=== PATIENT | male | born 1975 | race Caucasian/White ===

== ENCOUNTER 2024-01-15 16:39 | Emergency (ER) | payer BC, SELFPAY ==
[2024-01-15 16:50] VITALS: BP 123/81; PULSE 65; RESP 16; TEMP 37.2; O2SAT 99
--- NOTE | 2024-01-15 16:52 | ED.GENADULT ---
HPI - General Adult General Chief complaint: Extremity Problem,Nontraumatic Stated complaint: Arms and Legs Tingling Time Seen by Provider: 01/15/24 16:50 Source: patient Mode of arrival: ambulatory Limitations: no limitations History of Present Illness HPI narrative: Patient is a 48-year-old male who presents with tingling sensation to extremities since 2:00 p.m. after nap. Patient states he has had similar episodes sporadically over the last several years. The 1st instance patient was told he was about to have a stroke in his blood pressure was extremely high. Patient states has also diagnosed with renal artery fracture the same time.Patient states episodes since have lasted 6-8 hours. Patient denies any weakness or pain to extremities. Patient denies any headache, vision changes, shortness of breath, chest pain. Patient denies any swelling in extremities. Patient denies any fever, chills, nausea, vomiting, diarrhea, upper respiratory symptoms. Patient states he is overdue for lab work. Related Data Home Medications Medication Instructions Recorded Confirmed amlodipine 10 mg tablet 10 mg PO DAILY 01/15/24 01/15/24 hydrochlorothiazide 25 mg tablet 25 mg PO DAILY 01/15/24 01/15/24 metoprolol tartrate 50 mg tablet 50 mg PO BID 01/15/24 01/15/24 warfarin 5 mg tablet See Rx Instructions .Route .COMPLEX 01/15/24 01/15/24 Allergies Allergy/AdvReac Type Severity Reaction Status Date / Time lisinopril Allergy Severe Swelling Verified 01/15/24 17:15 Review of Systems Review of Systems: All systems reviewed & are unremarkable except as noted in HPI and below Constitutional: Constitutional: Denies body ache(s), Denies chills, Denies fatigue, Denies fever(s), Denies headache(s), Denies malaise and Denies weakness Eyes: Eyes: Denies blurry vision, Denies irritation and Denies loss of vision ENT: Denies otalgia, Denies headache(s), Denies nasal discharge, Denies sinus pain and Denies sore throat Cardiovascular: Cardiovascular: Denies chest pain, Denies irregular heart rhythm and Denies dyspnea Respiratory: Respiratory: Denies dyspnea Gastrointestinal: Gastrointestinal: Denies abdominal pain, Denies melena, Denies hematochezia, Denies diarrhea, Denies nausea and Denies vomiting Musculoskeletal: Musculoskeletal: Denies back pain, Denies myalgias and Denies arthralgias Integumentary/Breasts: Skin/Breast: Denies pruritus and Denies rash Neurologic: Denies headache(s), Denies loss of vision, Reports tingling and Denies weakness Psychiatric: Psychiatric: Reports no additional psychiatric complaints Endocrine: Endocrine: Denies fatigue PMFSH Comments At time of signature, agree with nursing past medical, surgical, social and family history. There is no relevant family history pertinent to the presenting complaint. Exam Const: General: cooperative, healthy appearing, comfortable, no acute distress and well nourished Nutritional Appearance: well nourished Orientation/consciousness: patient oriented x3 Limitations: no limitations HENMT: Head: normal to inspection, normocephalic and atraumatic Ears: hearing grossly normal bilaterally and external ears normal Face/Nose/Sinus: Normal external nose present, normal facial exam and face symmetric Face and sinus: normal facial exam and face symmetric Mouth: Yes lip normal Eyes: General: appearance normal, both eyes and all related structures Alignment and Position: alignment normal and position normal Periorbital: periorbital findings normal Eyelids: eyelids normal Pupils: Equal, round and reactive pupils present EOM: EOMs intact bilaterally Neck: Neck: normal visual inspection, full ROM and supple Chest: Chest palpation & inspection: normal inspection of the chest Resp: Effort & Inspection: normal respiratory effort and able to speak in complete sentences Auscultation: clear to auscultation bilaterally, no crackles, no rales, no rhonchi and no wheezes Cardio: Rate: regular
== END 2024-01-15 17:23 | disposition home or self-care (01) ==
PROVIDERS: Emergency Provider Nurse Practitioner Family
DX: R20.2 Paresthesia of skin (principal); I10 Essential (primary) hypertension; Z79.01 Long term (current) use of anticoagulants
CPT/HCPCS: 99212; G0463

== ENCOUNTER 2024-08-18 07:23 | Emergency (ER) | payer BC, SELFPAY ==
[2024-08-18] VITALS (7 sets, daily range): BP systolic 116–142; BP diastolic 84–98; PULSE 55–62; RESP 12–19; TEMP 36.4–36.7; O2SAT 95–99
--- NOTE | ~2024-08-18 | CT_ITS ---
CTA brain carotid Ordering provider: William Greer MD History: . CVA concern . Comparison: None. Technique: CT angiogram head was performed following timed intravenous injection of contrast. Thin sl ice axial images and reformatted coronal images were obtained. Three dimensional reformatted images o f the brain were also obtained using a [employer] workstation. Radiation reduction technique utilized. Th e dose-length product was 1833.16 mGy-cm. 100 mL Omnipaque 350 was given IV. FINDINGS: --ANTERIOR AND MIDDLE CEREBRAL ARTERIES AND BRANCHES: Normal caliber and contour. --INTERNAL CAROTID ARTERIES: Slight narrowing in the right supra clinoid carotid artery. Otherwise, n o significant stenosis. No occlusion. --BASILAR ARTERY AND BRANCHES: Normal caliber and contour. No atheromatous disease. --POSTERIOR CEREBRAL ARTERIES: Normal caliber and contour --POSTERIOR COMMUNICATING ARTERIES: The right is smaller in caliber. The left continues as the elementary reading tutor ior cerebral artery. --ANEURYSM: None visualized. --BRAIN: No acute intracranial process. --BONES AND SUPERFICIAL SOFT TISSUES: Normal.. --PARANASAL SINUSES AND MASTOIDS: Right maxillary sinus disease. IMPRESSION: Slight narrowing of the right supraclinoid carotid artery. No evidence of vascular occlusion or significant stenosis. CTA brain carotid Ordering provider: William Greer MD History: . CVA concern . Comparison: None. Technique: CT angiogram neck was performed following timed intravenous injection of contrast. Thin sl ice axial images and reformatted coronal images were obtained. Three dimensional reformatted images o f the neck were also obtained using a [employer] workstation. Automated exposure control and iterative re construction technique were employed. The dose-length product was 1833.16 mGy-cm. 100 mL Omnipaque 35 0 was given IV. FINDINGS: RIGHT CERVICAL CAROTID ARTERY: Normal caliber and contour. Percent stenosis per NASCET criteria is 0 %. No carotid dissection. Otherwise, no significant atheromatous disease or stenosis of the cervical carotid system. LEFT CERVICAL CAROTID ARTERY: Normal caliber and contour. Percent stenosis per NASCET criteria is 0% . No carotid dissection. Otherwise, no significant atheromatous disease or stenosis of the cervical c arotid system. VISUALIZED BILATERAL INTRACRANIAL CAROTID ARTERIES: Normal. VERTEBRAL BASILAR SYSTEM: Normal caliber and contour VISUALIZED AORTIC ARCH AND BRANCHING VESSELS: Normal caliber and contour. No significant atheromatous disease. SOFT TISSUES: Normal. CERVICAL SPINE: Normal. No evidence of fracture or significant degenerative changes. IMPRESSION: Slight narrowing of the right supraclavicular node artery. The Otherwise, Normal CTA head and neck. P ercent stenosis per NASCET criteria is 0%. Reviewed, dictated and finalized at location [facility]. [employer] IMPRESSION: Slight narrowing of the right supraclinoid carotid artery. No evidence of vascular occlusion or significant stenosis. CTA brain carotid Ordering provider: William Greer MD History: . CVA concern . Comparison: None. Technique: CT angiogram neck was performed following timed intravenous injectio n of contrast. Thin slice axial images and reformatted coronal images were obta ined. Three dimensional reformatted images of the neck were also obtained using a [employer] workstation. Automated exposure control and iterative reconstruction technique were employed. The dose-length product was 1833.16 mGy-cm. 100 mL Omn ipaque 350 was given IV. FINDINGS: RIGHT CERVICAL CAROTID ARTERY: Normal caliber and contour. Percent stenosis per NASCET criteria is 0%. No carotid dissection. Otherwise, no significant ather omatous disease or stenosis of the cervical carotid system. LEFT CERVICAL CAROTID ARTERY: Normal caliber and contour. Percent stenosis per NASCET criteria is 0%. No carotid dissection. Otherwise, no significant athero matous disease or stenosis of the cervical carotid system. VISUALIZED BILATERAL INTRACRANIAL CAROTID ARTERIES: Normal. VERTEBRAL BASILAR SYSTEM: Normal caliber and contour VISUALIZED AORTIC ARCH AND BRANCHING VESSELS: Normal caliber and contour. No si gnificant atheromatous disease. SOFT TISSUES: Normal. CERVICAL SPINE: Normal. No evidence of fracture or significant degenerative aline nges. IMPRESSION: Slight narrowing of the right supraclavicular node artery. The Otherwise, Debbie l CTA head and neck. Percent stenosis per NASCET criteria is 0%.
--- NOTE | 2024-08-18 08:22 | ECG_ITS ---
Test Date: 2024-08-18 08:32:38 Measurements Intervals [place] Rate: 54 P: 43 NC: 175 QRS: 27 QRSD: 85 T: 28 QT: 376 QTc: 357 Interpretive Statements SINUS BRADYCARDIA NONSPECIFIC ST-T WAVE ABNORMALITY- ANTEROLAT/INF LEADS BORDERLINE ECG No previous ECG available for comparison Electronically Signed On 08-18-2024 08:47:04 LICENSED MASSAGE THERAPIST by Anson Garcia D.O.
[2024-08-18 08:56] LABS: Basophils Absolute Auto 0.1 K/mm3 (0.0-0.1); Basophils Percent Auto 0.6 % (0.2-1.2); Eosinophils Absolute Auto 0.3 K/mm3 (0-0.3); Eosinophils Percent Auto 3.6 % (0-4.4); Hematocrit 49.1 % (42.0-52.0); Hemoglobin 17.5 g/dL (14.0-18.0); Immature Granulocyte Absolute 0.03 K/mm3 (0.00-0.031); Immature Granulocyte Percent A 0.3 % (0-0.5); Lymphocytes Absolute Auto 1.68 K/mm3 (0.9-3.2); Lymphocytes Percent Auto 19.4 % (18.3-44.2); Mean Corpuscular HGB Conc 35.6 g/dl (32-36); Mean Corpuscular Hemoglobin 30.6 pg (26-34); Mean Corpuscular Volume 85.8 fl (80-100); Mean Platelet Volume 10.9 fl (7.4-10.4); Monocytes Absolute Auto 0.5 K/mm3 (0.1-0.6); Monocytes Percent Auto 5.9 % (2.6-8.5); Neutrophils Absolute Auto 6.1 K/mm3 (1.3-6.7); Neutrophils Percent Auto 70.2 % (45.5-73.1); Platelet Count Result 174 k/mm3 (150-375); Red Blood Count 5.72 M/mm3 (4.6-6.20); Red Cell Distribution Width 12.6 % (11.5-14.5); White Blood Count 8.7 K/mm3 (4.5-10.0)
[2024-08-18 09:07] LABS: INR 1.8; Partial Thromboplastin Time 34.7 Seconds (22.3-36.8); Prothrombin Time 21.5 Seconds (11.1-14.7)
[2024-08-18 09:09] LABS: Alanine Aminotransferase 30 U/L (6-50); Albumin Level 4.4 g/dL (3.5-5.1); Alkaline Phosphatase 87 U/L (38-126); Anion Gap 10 mmol/L (4-12); Aspartate Amino Transferase 30 U/L (17-59); Bilirubin,Total 0.8 mg/dL (0.2-1.3); Blood Urea Nitrogen 15 mg/dL (9-20); Calcium 9.3 mg/dL (8.4-10.2); Carbon Dioxide 27 mmol/L (22-30); Chloride 100 mmol/L (98-107); Estimated CRCL calculation 93 ml/min; Estimated Glomerular Filt Rate > 60; Glucose 96 mg/dL (65-110); Potassium 3.9 mmol/L (3.4-5.0); Sodium 137 mmol/L (137-145)
[2024-08-18 09:17] LABS: Troponin I < 0.012 ng/mL (0.000-0.034)
--- NOTE | 2024-08-18 09:47 | ED.NEUROSD ---
HPI - Neuro Symptoms/Deficit General Chief Complaint: Neuro Symptoms/Deficit Stated Complaint: Right arm tingling Time Seen by Provider: 08/18/24 09:09 Source: patient Mode of arrival: ambulatory Limitations: no limitations History of Present Illness HPI Narrative: This is a 49-year-old male that presents to emergency department for right arm pain. Reports this has been ongoing over the last month. Reports associated tingling in his right arm. He has had some whole body tingling as well which prompted him to be seen. Denies focal numbness or weakness. Related Data Home Medications Medication Instructions Recorded Confirmed amlodipine 10 mg tablet 10 mg PO DAILY 01/15/24 01/15/24 hydrochlorothiazide 25 mg tablet 25 mg PO DAILY 01/15/24 01/15/24 metoprolol tartrate 50 mg tablet 50 mg PO BID 01/15/24 01/15/24 warfarin 5 mg tablet See Rx Instructions .Route .COMPLEX 01/15/24 01/15/24 Allergies Allergy/AdvReac Type Severity Reaction Status Date / Time lisinopril Allergy Severe Swelling Verified 01/15/24 17:15 Review of Systems Review of Systems: CONSTITUTIONAL: Denies fever EYES: Denies visual changes CARDIOVASCULAR: Denies chest pain RESPIRATORY: Denies dyspnea. GASTROINTESTINAL: Denies vomiting SKIN: Denies rash MUSCULOSKELETAL: Reports joint pain, and myalgia. NEUROLOGIC: Denies headache, numbness, or weakness. All systems reviewed & are unremarkable except as noted in HPI and below PMFSH Past Medical History Medical History (Updated 08/18/24 @ 11:12 by Amina Gotti PA-C) History of hypertension Social History Social History (Updated 08/18/24 @ 09:51 by Amina Gotti PA-C) Substance use: never Exam Narrative: GENERAL: Well-appearing, well-nourished, and in no acute distress. HEAD: Normocephalic, atraumatic. EYES: PERRLA and EOMI. ENT: Nares clear, no rhinorrhea or epistaxis. Mucous membranes moist. Oropharynx without tonsillar hypertrophy exudate or other lesions. Bilateral TMs pearly loyola non-bulging NECK: Supple. No adenopathy or masses. CHEST: Clear to auscultation. No respiratory distress. No wheezes rales or rhonchi HEART: Regular rate and rhythm. No murmur heard. Normal peripheral pulses. ABDOMEN: Soft, nontender, nondistended, normal active bowel sounds. EXTREMITIES: Normal range of motion. No edema. Strength equal in bilateral upper and lower extremities (5/5) SKIN: Warm, dry, no rash. NEURO: No focal deficits. Alert and oriented x3. Cranial nerves 2-12 grossly intact. Normal [id number] PSYCH: Normal mood and affect Course Course Emergency Course: Patient updated on his workup and agrees with plan of care Vital Signs Vital signs: Vital Signs Temperature 97.6 F 08/18/24 07:25 Pulse Rate 62 08/18/24 07:25 Respiratory Rate 16 08/18/24 07:25 Blood Pressure 140/98 H 08/18/24 07:25 Pulse Oximetry 99 08/18/24 07:25 Temperature 97.6 F 08/18/24 07:25 Pulse Rate 61 08/18/24 09:30 Respiratory Rate 18 08/18/24 09:30 Blood Pressure 116/84 08/18/24 09:01 Pulse Oximetry 96 08/18/24 09:30 MDM - Neuro Symptoms/Deficit MDM Narrative Medical decision making narrative: Patient presents to the emergency department for right arm pain and paresthesias. Reports this has been an ongoing problem for the last month. He has no focal deficits on exam. He is neurologically intact. Hypertensive upon arrival, this normalized without intervention. CBC and metabolic panel without concerning findings. EKG shows sinus bradycardia. CT brain carotid shows slight narrowing of the right supraclinoid carotid artery. I did speak with the radiologist about this, he does not believe this is clinically significant. Patient was updated on his workup. Instructed to have close follow-up with his primary provider for further evaluation. He was given warnings to return to the ER Differential Diagnosis Differential diagnosis: Likely carpal tunnel syndrome, peripheral neuropathy, cerebrovascular accident, multiple sclerosis, transient cerebral ischemia and other ( radiculopathy, electrolyte derangement, anxiety) Lab Data Attestation: I reviewed the patient's lab results. 08/18/24 08:45 08/18/24 08:45 Labs: Lab Results 08/18/24 Range/Units 08:45 WBC 8.7 (4.5-10.0) K/mm3 RBC 5.72 (4.6-6.20) M/mm3 Hgb 17.5 (14.0-18.0) g/dL Hct 49.1 (42.0-52.0) % MCV 85.8 (80-100) fl MCH 30.6 (26-34) pg MCHC 35.6 (32-36) g/dl RDW 12.6 (11.5-14.5) % Plt Count 174 (150-375) k/mm3 MPV 10.9 H (7.4-10.4) fl Immature Gran % (Auto) 0.3 (0-0.5) % Neut % (Auto) 70.2 (45.5-73.1) % Lymph % (Auto) 19.4 (18.3-44.2) % Dillon % (Auto) 5.9 (2.6-8.5) % Eos % (Auto) 3.6 (0-4.4) % Baso % (Auto) 0.6 (0.2-1.2) % Lymph # (Auto) 1.68 (0.9-3.2) K/mm3 Dillon # (Auto) 0.5 (0.1-0.6) K/mm3 Eos # (Auto) 0.3 (0-0.3) K/mm3 Baso # (Auto) 0.1 (0.0-0.1) K/mm3 Abs Immat Gran (auto) 0.03 (0.00-0.031) K/mm3 Absolute Neuts (auto) 6.1 (1.3-6.7) K/mm3 Absolute Nucleated RBC 0.000 (0.0-0.012) K/mm3 Nucleated RBC % 0.0 (0.0-0.2) % PT 21.5 H (11.1-14.7) Seconds INR 1.8 APTT 34.7 (22.3-36.8) Seconds Sodium 137 (137-145) mmol/L Potassium 3.9 (3.4-5.0) mmol/L Chloride 100 (98-107) mmol/L Carbon Dioxide 27 (22-30) mmol/L Anion Gap 10 (4-12) mmol/L BUN 15 (9-20) mg/dL Creatinine 0.90 (0.7-1.3) mg/dL Estim Creat Clear Calc 93 ml/min Estimated GFR > 60 (59 - ) Glucose 96 (65-110) mg/dL Calcium 9.3 (8.4-10.2) mg/dL Total Bilirubin 0.8 (0.2-1.3) mg/dL AST 30 (17-59) U/L ALT 30 (6-50) U/L Alkaline Phosphatase 87 (38-126) U/L Troponin I < 0.012 (0.000-0.034) ng/mL Total Protein 8.0 (6.3-8.2) g/dL Albumin 4.4 (3.5-5.1) g/dL Imaging Data Radiologist's impression: ITS Impressions Head/Neck CTA 08/18/24 09:27 IMPRESSION: Slight narrowing of the right supraclinoid carotid artery. No evidence of vascular occlusion or significant stenosis. CTA brain carotid Ordering provider: William Greer MD History: . CVA concern . Comparison: None. Technique: CT angiogram neck was performed following timed intravenous injection of contrast. Thin slice axial images and reformatted coronal images were obtained. Three dimensional reformatted images of the neck were also obtained using a [employer] workstation. Automated exposure control and iterative reconstruction technique were employed. The dose-length product was 1833.16 mGy-cm. 100 mL Omnipaque 350 was given IV. FINDINGS: RIGHT CERVICAL CAROTID ARTERY: Normal caliber and contour. Percent stenosis per NASCET criteria is 0%. No carotid dissection. Otherwise, no significant atheromatous disease or stenosis of the cervical carotid system. LEFT CERVICAL CAROTID ARTERY: Normal caliber and contour. Percent stenosis per NASCET criteria is 0%. No carotid dissection. Otherwise, no significant atheromatous disease or stenosis of the cervical carotid system. VISUALIZED BILATERAL INTRACRANIAL CAROTID ARTERIES: Normal. VERTEBRAL BASILAR SYSTEM: Normal caliber and contour VISUALIZED AORTIC ARCH AND BRANCHING VESSELS: Normal caliber and contour. No significant atheromatous disease. SOFT TISSUES: Normal. CERVICAL SPINE: Normal. No evidence of fracture or significant degenerative changes. IMPRESSION: Slight narrowing of the right supraclavicular node artery. The Otherwise, Normal CTA head and neck. Percent stenosis per NASCET criteria is 0%. ADDENDUM: 08/18/24 1025 Please ignore the previous impression. IMPRESSION: Slight narrowing of the right intracranial supraclinoid artery. Otherwise, Normal CTA neck. Percent stenosis per NASCET criteria is 0%. ECG Data EKG #1: ECG completion date: 08/18/24 EKG Interpretation: bradycardia, sinus rhythm, no ST changes and normal QT Critical Care Time Critical Care Time Critical Care Time: No Discharge Plan Discharge Clinical Impression: Paresthesia Patient Disposition: Home, Self-Care Condition: Stable Instructions: Paresthesia (ED) Additional Instructions: Return to the emergency department if you experience fever, chest pain, shortness of breath, abdominal pain with nausea and vomiting, sudden onset weakness/numbness, or any other symptoms that are concerning to you. Your blood work, EKG and imaging today was re-assuring The radiologist noted slight slight narrowing of the right supraclinoid carotid artery, but did not believe this was clinically significant/concerning Take your home medications as prescribed Follow up with your primary care doctor for further evaluation Prescriptions: No Action amlodipine 10 mg tablet 10 mg PO DAILY warfarin 5 mg tablet See Rx Instructions .ROUTE .COMPLEX Rx Instructions: Rx metoprolol tartrate 50 mg tablet 50 mg PO BID hydrochlorothiazide 25 mg tablet 25 mg PO DAILY Follow-up/Referrals: PHYSICIAN,GAS BLENDER [Primary Care Provider] -
== END 2024-08-18 11:44 | disposition home or self-care (01) ==
PROVIDERS: Emergency Medicine; Emergency Provider Physician Assistant
DX: R20.2 Paresthesia of skin (principal); I10 Essential (primary) hypertension; Z79.01 Long term (current) use of anticoagulants; Z79.899 Other long term (current) drug therapy; R00.1 Bradycardia, unspecified; R94.31 Abnormal electrocardiogram [ECG] [EKG]
CPT/HCPCS: 36415; 70496; 70498; 80053; 84484; 85025; 85610; 85730; 93005; 99284; Q9967